=== PATIENT | male | born 1980 | race Caucasian/White ===

== ENCOUNTER 2019-02-21 10:00 | Emergency (ER) | payer OTHER ==
[~2019-02-21] VITALS: Ht 182.9 cm; Wt 83.9 kg
[2019-02-21] MEDS ORDERED: LIPITOR40 MG PO (10:07)
[2019-02-21] MEDS ORDERED: DULOXETINE HCL30 MG PO (10:07)
[2019-02-21] MEDS ORDERED: PRILOSEC OTC20 MG PO (10:08)
--- NOTE | 2019-02-21 15:41 | EKG ---
[facility] [address] [facility] [place] [address] Signed Sinus tachycardia Left axis deviation Abnormal ECG No previous ECGs available Confirmed by KE KELLOGG DO ([id number]) on 02/21/2019 3:41:01 PM Electronically Signed By: KE KELLOGG DO 02/21/19 1541 PATIENT NAME: KATJA SERRA Electrocardiogram DATE OF : 84 PHYSICIAN: KE KELLOGG DO REPORT #: [id number] REPORT IS CONFIDENTIAL AND NOT TO BE RELEASED WITHOUT AUTHORIZATION
== END 2019-02-21 16:30 | disposition home or self-care (01) ==
LOC: ED 10:00
PROC: 009U3ZX Drainage of Spinal Canal, Percutaneous Approach, Diagnostic (ICD-10-PCS; principal; 2019-02-21)
DX: R51 Headache (principal); Z87.891 Personal history of nicotine dependence; Z88.0 Allergy status to penicillin; Z88.1 Allergy status to other antibiotic agents; Z79.899 Other long term (current) drug therapy
CPT/HCPCS: 62270; 71045; 80053; 82945; 83690; 83735; 84157; 84484; 85025; 85032; 89051; 93005; 93010; 99284-25; J2550; J7030

== ENCOUNTER 2025-06-29 12:23 | Emergency (ER) | payer OTHER ==
[~2025-06-29] VITALS: Ht 182.9 cm; Wt 83.6 kg
[~2025-06-29 12:23] MED LIST: DULOXETINE HCL30 MG PO; LIPITOR40 MG PO; PRILOSEC OTC20 MG PO
[2025-06-29 12:54] LABS: BASOPHILS 0.2 % (0.2-1.2); EOSINOPHILS 0.1 % (0.8-7.0); LYMPHOCYTES 6.2 % (21.8-53.1); MCH 31.9 PG (25.7-32.2); MCHC 34.4 g/dL (32.3-36.5); MCV 92.8 fL (79.0-92.2); MONOCYTES 7.0 % (5.3-12.2); NEUTROPHILS 86.3 % (34.0-67.9); RBC 4.89 M/uL (4.63-6.08)
[2025-06-29] MEDS ORDERED: KETOROLAC TROMETHAMINE 15 MG/ML VIAL IV ONE (13:00)
[2025-06-29 13:04] LABS: ALT (SGPT) 39.0 U/L (14-59); AST (SGOT) 33.0 U/L (15-37); GLOMERULAR FILTRATION RATE,EST 59.0 mL/min (>60); PROTEIN, TOTAL 7.8 g/dL (6.4-8.2); UREA NITROGEN 20.0 mg/dL (7-18)
[2025-06-29 13:51] LABS: BLOOD/HGB, URINE NEGATIVE (Negative); KETONE, URINE NEGATIVE (Negative); LEUK ESTERASE, URINE NEGATIVE (negative); NITRITE, URINE NEGATIVE (negative)
[2025-06-29] MEDS ORDERED: HYDROCODON-ACE1 EA10 PO (14:09)
[2025-06-29] MEDS ORDERED: ONDANSETRON ODT4 MG PO (14:09)
[2025-06-29] MEDS ORDERED: FLOMAX0.4 MG PO (14:09)
[2025-06-29 14:32] VITALS: BP 123/85
== END 2025-06-29 14:30 | disposition home or self-care (01) ==
LOC: ED 12:23
PROVIDERS: Emergency Medicine
DX: N13.2 Hydronephrosis with renal and ureteral calculous obstruction (principal); Z88.0 Allergy status to penicillin; Z88.8 Allergy status to other drugs, medicaments and biological substances; Z87.891 Personal history of nicotine dependence
CPT/HCPCS: 36415; 74177; 80053; 81003; 85025; 99284-25; Q9967